=== PATIENT | male | born 1995 | race Two or more races ===

== ENCOUNTER 2021-05-19 11:58 | Emergency (ER) | payer OTHER, SELFPAY ==
--- NOTE | ~2021-05-19 | XR_ITS ---
EXAMINATION: XR CHEST CLINICAL INFORMATION: Pleuritic chest pain COMPARISON: None TECHNIQUE: Portable upright AP view of the chest was obtained. FINDINGS: The lungs are clear. There is no airspace consolidation, pleural reaction, pneumothorax, or effusion. The heart is normal in size. The hilar and mediastinal contours and bony structures are unremarkable. XR/XR chest 1V IMPRESSION: Unremarkable examination.
[2021-05-19 12:08] VITALS: BP 119/68; PULSE 68; RESP 16; TEMP 36.5; O2SAT 97; BMI 29.4
--- NOTE | 2021-05-19 14:08 | ED.BACK ---
HPI - Back Pain/Injury General Chief Complaint: Back Pain/Injury Stated Complaint: severe back pain Time Seen by Provider: 05/19/21 13:17 History of Present Illness HPI Narrative: patient complains of mid back pain worse with movement worse on the left side which started from a minor twisting injury, no fall, no radiation of pain no difficulty breathing no chest pain no numbness weakness or tingling no skin rash Related Data Previous Rx's Medication Instructions Recorded cyclobenzaprine 5 mg tablet 5 mg PO TID PRN #14 tab 05/19/21 ibuprofen 600 mg tablet 600 mg PO Q6H PRN #20 tab 05/19/21 oxycodone-acetaminophen 5 mg-325 1 tab PO Q6H PRN #14 tab 05/19/21 mg tablet (Percocet) Allergies Allergy/AdvReac Type Severity Reaction Status Date / Time loratadine [From CLARITIN] Allergy Intermediate RASH Verified 05/19/21 12:08 Review of Systems Review of Systems: Review of systems is positive for left-sided back pain Negatives are no fever no chills no dizziness no weakness no fainting no feeling faint no headache no neck pain no chest pain no shortness of breath no abdominal pain no nausea or vomiting no dysuria no incontinence no changes to bowel or bladder no skin rashes no muscle weakness or loss of sensation Physical exam General appearance no acute distress Head is normocephalic atraumatic Neck is supple Chest is clear to auscultation bilateral Abdomen is soft nontender The back had lower lumbar paraspinal soft tissue tenderness on the left side, the skin is normal no redness no warmth no wounds no rashes, pain is reproduced with movement, no focal bony tenderness and no CVA tenderness Extremities full range of motion x4 Neuro no gross motor or sensory deficits [facility] Past Medical History Medical History ADHD Asthma Social History Social History Advance Directives: No Advance Directives Information Provided: No Physical Exam Vital Signs: Vital Signs: Last Vital Signs Temp 97.7 F 05/19/21 12:08 Pulse 68 05/19/21 12:08 Resp 16 05/19/21 12:08 BP 119/68 05/19/21 12:08 Pulse Ox 97 05/19/21 12:08 Body Mass Index 29.4 Course Course Course Narrative: Well-appearing patient with musculoskeletal back pain is treated for symptomatic relief and discharged to follow-up as needed Discharge Plan Discharge Clinical Impression: Back strain Patient Disposition: Home, Self-Care Additional Instructions: pain is likely from muscle strain of the back and should resolve usually on its own in a reasonable amount of time If needed follow with primary doctor and they would send you for physical therapy and any further evaluation if needed Chiropractor and massage or often helpful Return any time if worse Prescriptions: New oxycodone-acetaminophen [Percocet] 5-325 mg tablet 1 tab PO Q6H PRN (Reason: pain) Qty: 14 RF: 0 cyclobenzaprine 5 mg tablet 5 mg PO TID PRN (Reason: muscle spasm) Qty: 14 RF: 0 ibuprofen 600 mg tablet 600 mg PO Q6H PRN (Reason: pain) Qty: 20 RF: 0 Interventions: ED Discharge Assessment Last Done: 05/19/21 14:18 Discharge Date/Time: 05/19/21 14:18
== END 2021-05-19 14:18 | disposition home or self-care (01) ==
PROVIDERS: Emergency Provider Emergency Medicine
DX: S39.012A Strain of muscle, fascia and tendon of lower back, initial encounter (principal); X50.1XXA Overexertion from prolonged static or awkward postures, initial encounter; Y93.9 Activity, unspecified; Y92.9 Unspecified place or not applicable; Y99.9 Unspecified external cause status
CPT/HCPCS: 71045; 99283

== ENCOUNTER 2023-02-11 17:58 | Emergency (ER) | payer OTHER, SELFPAY ==
--- NOTE | ~2023-02-11 | XR_ITS ---
EXAMINATION: XR cervical spine 3V CLINICAL INFORMATION: Pain COMPARISON: None TECHNIQUE: 4 views of the cervical spine were obtained. FINDINGS: The cervical spine is visualized to the level of C7-T1 on the lateral view. Vertebral body alignment is maintained. Vertebral body heights are maintained. Mild degenerative disc disease at C5-C6, manifested by loss of disc space height and degenerative endplate spurring.. Lateral masses of C1 are well aligned on C2. Visualized portion of the dens is intact. No prevertebral soft tissue swelling. XR/XR cervical spine 3V IMPRESSION: * Mild spondylosis of the cervical spine, as above detailed.
--- NOTE | ~2023-02-11 | XR_ITS ---
EXAMINATION: XR SHOULDER, RIGHT CLINICAL INFORMATION: Reason for Exam rt shoulder pain COMPARISON: None TECHNIQUE: Three views of the shoulder. FINDINGS: No acute fracture or dislocation. Joint spaces are maintained without significant degenerative change. Soft tissues are unremarkable. XR/XR shoulder RT min 2V IMPRESSION: * No acute osseous abnormality.
--- NOTE | ~2023-02-11 | XR_ITS ---
EXAMINATION: XR SHOULDER, LEFT CLINICAL INFORMATION: Reason for Exam lt shoulder pain COMPARISON: None TECHNIQUE: Three views of the shoulder. FINDINGS: No acute fracture or dislocation. Joint spaces are maintained without significant degenerative change. Tiny dense sclerotic lesion in the humeral head may reflect a small bone island. Soft tissues are unremarkable. XR/XR shoulder LT min 2V IMPRESSION: * No acute osseous abnormality. * Tiny dense sclerotic lesion in the humeral head may reflect a small bone island.
--- NOTE | ~2023-02-11 | XR_ITS ---
EXAMINATION: XR CHEST CLINICAL INFORMATION: Reason for Exam chest trauma COMPARISON: Chest radiograph 05/19/2021 TECHNIQUE: One view of the chest FINDINGS: Clear lungs. No pneumothorax or pleural effusion. Normal cardiomediastinal silhouette. No displaced rib fracture appreciated however radiographs have limited sensitivity and the ribs were incompletely imaged on this chest radiograph. XR/XR chest 1V IMPRESSION: * Clear lungs.
[2023-02-11 18:19] VITALS: BP 131/81; PULSE 74; RESP 18; TEMP 36.7; O2SAT 98; BMI 30.8
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
[2023-02-11] MEDS: Ibuprofen 400 MG TABLET PO (20:40)
== END 2023-02-11 20:55 | disposition home or self-care (01) ==
PROVIDERS: Emergency Provider Emergency Medicine Emergency Medical Services
DX: S13.4XXA Sprain of ligaments of cervical spine, initial encounter (principal); S46.911A Strain of unspecified muscle, fascia and tendon at shoulder and upper arm level, right arm, initial encounter; S46.912A Strain of unspecified muscle, fascia and tendon at shoulder and upper arm level, left arm, initial encounter; R51.9 Headache, unspecified; M54.2 Cervicalgia; R07.89 Other chest pain; V43.52XA Car driver injured in collision with other type car in traffic accident, initial encounter; Y93.9 Activity, unspecified; Y92.410 Unspecified street and highway as the place of occurrence of the external cause; Y99.9 Unspecified external cause status; Z79.899 Other long term (current) drug therapy
CPT/HCPCS: 71045; 72040; 73030; 99283

== ENCOUNTER 2023-06-10 12:17 | Emergency (ER) | payer OTHER, SELFPAY ==
[2023-06-10 12:24] VITALS: BP 114/71; PULSE 63; RESP 16; TEMP 36.1; O2SAT 96; BMI 31.4
--- NOTE | 2023-06-10 12:26 | ED.GENADULT ---
HPI - General Adult General Chief complaint: General Medical Stated complaint: Stitches bleeding surgery 3 days ago Time Seen by Provider: 06/10/23 13:34 Source: patient and family (patient's mother) Mode of arrival: ambulatory Limitations: no limitations History of Present Illness HPI narrative: Patient is a 27 year old assigned male at with a history of asthma and ADHD presenting to the emergency department today with post-operative bleeding. Patient states that on 06/07/2023 he had a hair transplant in [place]. Patient states that one of his sutured areas on the back of his head is bleeding. Patient states that he called the facility that did the procedure and they told him to apply direct pressure and not to worry about it. Patient denies any dizziness, lightheadedness, abdominal pain, nausea, vomiting, fever, chills, blurry vision, double vision, loss of vision, chest pain, difficulty breathing, shortness of breath, back pain, night sweats, pain with urination, increased urinary frequency, increased urinary urgency, blood in his urine or stool, syncope or a near syncopal episode, recent trauma or falls, bowel incontinence, bladder incontinence, bowel retention, bladder retention, or any other complaints at this time. Onset (ago): day(s) Location: head Radiation: non-radiation Severity: mild Severity scale (1-10): 3 Relieving factors: none Exacerbating factors: none Associated symptoms: denies other symptoms Treatments prior to arrival: none Related Data Previous Rx's Medication Instructions Recorded cyclobenzaprine 5 mg tablet 5 mg PO TID PRN muscle spasm #14 05/19/21 tabs ibuprofen 600 mg tablet 600 mg PO Q6H PRN pain #20 tabs 05/19/21 oxycodone-acetaminophen 5 mg-325 1 tab PO Q6H PRN pain #14 tabs 05/19/21 mg tablet (Percocet) ibuprofen 400 mg tablet 400 mg PO Q6H PRN pain #20 tabs 02/11/23 Allergies Allergy/AdvReac Type Severity Reaction Status Date / Time loratadine [From CLARITIN] Allergy Intermediate RASH Verified 06/10/23 12:27 Review of Systems Constitutional: Constitutional: Reports no additional constitutional complaints, Denies chills, Denies fever(s) and Denies night sweats Eyes: Eyes: Reports no additional eye complaints, Denies blurry vision, Denies change in vision, Denies diplopia, Denies eye discharge, Denies loss of vision and Denies eye pain ENT: Denies dizziness Comments: posterior scalp bleeding Cardiovascular: Cardiovascular: Reports no additional cardiovascular complaints, Denies chest pain, Denies lightheadedness, Denies Loss of Consciousness and Denies dyspnea Respiratory: Respiratory: Reports no additional respiratory complaints and Denies dyspnea Gastrointestinal: Gastrointestinal: Reports no additional gastrointestinal complaints, Denies abdominal pain, Denies melena, Denies hematochezia, Denies change in bowel habits and Denies change in stool character Genitourinary: Genitourinary: Reports no additional male genitourinary complaints, Denies hematuria, Denies oliguria, Denies difficulty urinating, Denies dysuria, Denies urinary frequency, Denies urinary hesitancy, Denies urinary incontinence and Denies urinary urgency Musculoskeletal: Musculoskeletal: Reports no additional musculoskeletal complaints, Denies numbness and Denies tingling Neurologic: Denies dizziness, Denies loss of vision, Denies numbness and Denies tingling Psychiatric: Psychiatric: Reports no additional psychiatric complaints Endocrine: Endocrine: Reports no additional endocrine complaints Hematologic/Lymphatic: Hematologic/Lymphatic: Reports no additional hematologic/lymphatic complaints Allergic/Immunologic: Allergic/Immunologic: Reports no additional allergic/immunologic complaints [facility] Past Medical History Attestation statement: The following information was validated with the patient. Source: old records reviewed and nursing notes reviewed Medical History ADHD Asthma Social History Social History Smoked in Last 30 Days: No Use of substances other than those prescribed or required for medical reasons: No Advance Directives: No Advance Directives Information Provided: Yes Physical Exam ED Vital Signs: Vital Signs - 24 hr 06/10/23 12:24 06/10/23 14:20 Temperature 97 F 98.4 F Pulse Rate 63 72 Respiratory Rate 16 16 Blood Pressure 114/71 128/65 Pulse Oximetry 96 97 Oxygen Delivery Method Room Air Room Air BMI result Body Mass Index 31.4 Const General: cooperative, no acute distress, alert and awake Nutritional Appearance: well nourished Orientation/consciousness: patient oriented x3 Limitations: no limitations [facility] Head images: 1. large area of hair with scabbing and blood clot Ears: hearing grossly normal bilaterally and external ears normal General nose exam: Normal external nose present, no nasal discharge noted and no epistaxis Face and sinus: Yes normal facial exam, No abrasion and No laceration Mouth: Normal oral and palatal mucosa present, no drooling and no muffled voice Eyes General: appearance normal, both eyes and all related structures Periorbital: periorbital findings normal Eyelids: Yes eyelids normal Conjunctivae: conjunctivae normal Pupils: Equal, round and reactive pupils present EOM: EOMs intact bilaterally Neck Neck: Yes normal visual inspection, Yes full ROM and Yes no lymphadenopathy Chest Chest palpation & inspection: normal inspection of the chest Resp Effort & Inspection: normal respiratory effort and able to speak in complete sentences GI Inspection: Yes normal to inspection Neuro General: patient oriented x3 and moves all extremities Cranial nerves: Yes Equal, round and reactive pupils present Cognition (Neuro): normal cognition Motor exam (neuro): 5/5 motor strength present throughout Sensory Exam: Normal double simultaneous stimulation for sensation Coordination: [id number] test normal Extrem General: Yes normal to inspection, Yes full ROM and Yes capillary refill normal Psych Appearance: grossly normal Mental Status: mental status grossly normal Affect: normal affect Attitude: cooperative Thought process: Normal thought process present Thought content: Normal thought content present Insight: Good insight present (Psych) Course Course Course Narrative: This is a rapid medical exam. deferred additional HPI, ROS, PE to primary provider. 27 yo male with history of asthma here with concern of bleeding from suture site. Had hair transplant procedure in [place], [place] on 06/07. Concerned because the suture sites are bleeding. Removed dressing in triage, large area of matted blood. Will need to be irrigated to determine area of bleeding. VSS. Medications Administered Discontinued Medications Generic Name Dose Route Start Last Admin Trade Name Freq PRN Reason Stop Dose Admin Tranexamic Acid 500 mg 06/10/23 14:06 06/10/23 14:33 Tranexamic Acid 1,000 Mg/10 Ml Vial INTRANASAL 06/10/23 14:07 500 mg ONCE ONE Administration Medical Decision Making Medical Decision Making MDM Narrative: Patient is a 27 year old assigned male at with a history of ADHD and asthma presenting to the emergency department today with post-operative bleeding. Patient's physical exam showed clumped hair with dried blood and clots present. Active bleeding wasn't visualized. I explained my physical exam findings to the patient and the patient's mother. I answered all questions asked by the patient and the patient's mother. Patient's area of concern was debrided of all blood clots and cleaned thoroughly. Patient's area of concerned was covered with TXA soaked gauze with a mild compression dressing made up of web roll type gauze. Patient's bleeding was well controlled. I stressed the importance of the patient taking his medication as prescribed. I stressed the importance of the patient following up with his primary care provider. I stressed the importance of the patient returning to the emergency department immediately if his symptoms were to worsen or if he were to develop any dizziness, shortness of breath, difficulty breathing, chest pain, blurry vision, loss of vision, nausea, vomiting, abdominal pain, fever, chills, back pain, or any other complaints. Patient and the patient's mother verbalized agreement and understanding with this treatment plan and discharge. Differential Diagnosis Differential Diagnoses: The differential diagnosis associated with the presentation includes Post-operative bleeding Discharge Plan Discharge Clinical Impression: Bleeding from wound Patient Disposition: Home, Self-Care Instructions: Postoperative Bleeding (ED) Additional Instructions: Do NOT change your dressing for 3 days. Follow up with your primary care provider. Return to the emergency department immediately if your symptoms worsen or if you develop any dizziness, shortness of breath, difficulty breathing, chest pain, blurry vision, loss of vision, nausea, vomiting, abdominal pain, fever, chills, back pain, or any other complaints. Prescriptions: No Action oxycodone-acetaminophen [Percocet] 5-325 mg tablet 1 tab PO Q6H PRN (Reason: pain) Qty: 14 0RF Rx Instructions: narcotic, no driving for 6 hours after taking this medication cyclobenzaprine 5 mg tablet 5 mg PO TID PRN (Reason: muscle spasm) Qty: 14 0RF Rx Instructions: this medication may cause drowsiness, no driving for 6 hours after taking ibuprofen 600 mg tablet 600 mg PO Q6H PRN (Reason: pain) Qty: 20 0RF ibuprofen 400 mg tablet 400 mg PO Q6H PRN (Reason: pain) Qty: 20 0RF Referrals: [facility] Family Medicine [Provider Group] (Call to establish and follow up with a primary care provider. If you already have a primary care provider, please follow up with them.) [facility] Primary CareLuis Eduardo [Provider Group] (Call to establish and follow up with a primary care provider. If you already have a primary care provider, please follow up with them.) [facility] Primary CareJessica [Provider Group] (Call to establish and follow up with a primary care provider. If you already have a primary care provider, please follow up with them.) Interventions: ED Discharge Assessment Last Done: 06/10/23 14:41 Discharge Date/Time: 06/10/23 14:41 Print Language: Yoruba
[2023-06-10 14:20] VITALS: BP 128/65; PULSE 72; RESP 16; TEMP 36.9; O2SAT 97
[2023-06-10] MEDS: Tranexamic Acid 1,000 MG/10 ML VIAL 500 MG INTRANASAL (14:33)
== END 2023-06-10 14:41 | disposition home or self-care (01) ==
PROVIDERS: Emergency Provider Student in an Organized Health Care Education/Training Program
DX: L76.22 Postprocedural hemorrhage of skin and subcutaneous tissue following other procedure (principal); Z79.899 Other long term (current) drug therapy
CPT/HCPCS: 99284

== ENCOUNTER 2023-06-28 19:18 | Emergency (ER) | payer OTHER, SELFPAY ==
[2023-06-28 19:55] VITALS: BP 127/65; PULSE 72; RESP 18; TEMP 36.3; O2SAT 97; BMI 33.2
--- NOTE | 2023-06-28 20:07 | ED.GENADULT ---
HPI - General Adult General Chief complaint: General Medical Stated complaint: suture removal Time Seen by Provider: 06/28/23 20:07 Source: patient, RN notes reviewed and old records reviewed Mode of arrival: ambulatory History of Present Illness HPI narrative: 28-year-old male with past medical history of ADHD, asthma, s/p hair transplant in [place] on the 06/07 presenting to ED for suture removal. States sutures were supposed to dissolve on their own however if they were dissolved was told he could get them removed after 18 days. Denies complaints at present including fever/chills, drainage from area. Onset (ago): week(s) Related Data Previous Rx's Medication Instructions Recorded cyclobenzaprine 5 mg tablet 5 mg PO TID PRN muscle spasm #14 05/19/21 tabs ibuprofen 600 mg tablet 600 mg PO Q6H PRN pain #20 tabs 05/19/21 oxycodone-acetaminophen 5 mg-325 1 tab PO Q6H PRN pain #14 tabs 05/19/21 mg tablet (Percocet) ibuprofen 400 mg tablet 400 mg PO Q6H PRN pain #20 tabs 02/11/23 Allergies Allergy/AdvReac Type Severity Reaction Status Date / Time loratadine [From CLARITIN] Allergy Intermediate RASH Verified 06/28/23 19:54 Review of Systems Review of Systems: Constitutional: No Fever, No Chills ENT/Mouth: No Ear Pain, No Nasal Congestion, No sore throat, No Rhinorrhea, No Swallowing Difficulty Cardiovascular: No Chest Pain, No SOB Respiratory: No Cough, No Sputum, No Wheezing Gastrointestinal: No Nausea, No Vomiting, No Abdominal pain Musculoskeletal: No joint pain, No Myalgias, No Joint Swelling Skin: +Skin Lesions, No rash Neuro: No Weakness, No Numbness, No Paresthesias Yes all other systems are reviewed and are negative Constitutional: Constitutional: Reports as per [facility] Past Medical History Attestation statement: The following information was validated with the patient. Source: old records reviewed Medical History ADHD Asthma Physical Exam ED Vital Signs: Vital Signs - 24 hr 06/28/23 19:55 Temperature 97.3 F Pulse Rate 72 Respiratory Rate 18 Blood Pressure 127/65 Pulse Oximetry 97 Oxygen Delivery Method Room Air BMI result Body Mass Index 33.2 Const General: cooperative, healthy appearing and no acute distress Orientation/consciousness: patient oriented x3 Limitations: no limitations HENMT Other: + large running suture intact to posterior scalp with appropriate wound healing, overlying crusting. No erythema. No fluctuance/induration or drainage. Head: Yes normal to inspection and Yes atraumatic Ears: hearing grossly normal bilaterally General nose exam: Normal external nose present Face and sinus: Yes normal facial exam Eyes General: appearance normal, both eyes and all related structures EOM: EOMs intact bilaterally Neck Neck: Yes normal visual inspection and Yes no meningeal signs Resp Effort & Inspection: normal respiratory effort and no respiratory distress Cardio Rate: regular rate Skin Rashes: no rashes Neuro General: patient oriented x3, tone normal and no meningeal signs Cranial nerves: Yes CN's II-XII intact bilaterally Gait exam (Neuro): Normal gait present Extrem General: Yes normal to inspection Procedures Procedure Narrative Procedure Narrative: Suture removal Posterior scalp 41cm suture removed No complications No active bleeding, discharge or pus drainage Medical Decision Making Medical Decision Making MDM Narrative: 28-year-old male with past medical history of ADHD, asthma, s/p hair transplant in [place] on the 06/07 presenting to ED for suture removal. On exam vital signs stable, NAD, nontoxic appearing, physical exam as above with intact running suture to posterior scalp with appropriate wound healing. No evidence of cellulitis, no abscess/drainage Running suture removed without complication. Results discussed with patient including worrisome signs and symptoms and strict return precautions, and when to return to the emergency department. They verbalized understanding and feel safe for discharge at this time. Differential Diagnosis Differential Diagnoses: The differential diagnosis associated with the presentation includes As above External Record Review External record reviewed: Inpatient record, Office record, Outpatient record, Prior outpatient labs, Prior outpatient radiology, Primary care record and Outside ED record Tests considered The following testing was considered but not selected: As above Discharge Plan Discharge Clinical Impression: Encounter for removal of sutures Patient Disposition: Home, Self-Care Instructions: Stitches Removal (ED) Additional Instructions: Keep dry and clean, do scrub, do not pick at scabs If area begins took infected, is red there is drainage or you fever return to the ED Prescriptions: No Action oxycodone-acetaminophen [Percocet] 5-325 mg tablet 1 tab PO Q6H PRN (Reason: pain) Qty: 14 0RF Rx Instructions: narcotic, no driving for 6 hours after taking this medication cyclobenzaprine 5 mg tablet 5 mg PO TID PRN (Reason: muscle spasm) Qty: 14 0RF Rx Instructions: this medication may cause drowsiness, no driving for 6 hours after taking ibuprofen 600 mg tablet 600 mg PO Q6H PRN (Reason: pain) Qty: 20 0RF ibuprofen 400 mg tablet 400 mg PO Q6H PRN (Reason: pain) Qty: 20 0RF Referrals: Physician,Unknown J [Primary Care Provider] -
== END 2023-06-28 20:16 | disposition home or self-care (01) ==
PROVIDERS: Emergency Provider Emergency Medicine
DX: Z48.02 Encounter for removal of sutures (principal)
CPT/HCPCS: 99282

== ENCOUNTER 2023-06-30 13:56 | Emergency (ER) | payer OTHER, SELFPAY ==
--- NOTE | 2023-06-30 14:00 | ED.GENADULT ---
HPI - General Adult General Chief complaint: Skin/Abscess/Foreign Body Stated complaint: wound check Time Seen by Provider: 06/30/23 14:04 Source: patient Mode of arrival: ambulatory Limitations: no limitations History of Present Illness HPI narrative: 28 yo male with history of ADHD, asthma, hair transplant in [place] on 06/07 here with concern for redness at the incision site and itching. Seen here 06/11 for bleeding from suture site, dressing was reinforced and sent home, returned 06/28 for suture removal. Has plans to follow-up with his PCP in August. No plans to return to [place] to be seen by the surgeon Related Data Previous Rx's Medication Instructions Recorded cyclobenzaprine 5 mg tablet 5 mg PO TID PRN muscle spasm #14 05/19/21 tabs ibuprofen 600 mg tablet 600 mg PO Q6H PRN pain #20 tabs 05/19/21 oxycodone-acetaminophen 5 mg-325 1 tab PO Q6H PRN pain #14 tabs 05/19/21 mg tablet (Percocet) ibuprofen 400 mg tablet 400 mg PO Q6H PRN pain #20 tabs 02/11/23 Allergies Allergy/AdvReac Type Severity Reaction Status Date / Time loratadine [From CLARITIN] Allergy Intermediate RASH Verified 06/28/23 19:54 Review of Systems Review of Systems: Yes all other systems are reviewed and are negative Constitutional: Constitutional: Reports no additional constitutional complaints, Denies body ache(s), Denies chills, Denies fever(s), Denies headache(s) and Denies weakness Eyes: Eyes: Reports no additional eye complaints and Denies change in vision ENT: Reports system reviewed and no additional complaints, except as documented, Denies dizziness, Denies headache(s), Denies nasal congestion, Denies nasal discharge and Denies neck pain Cardiovascular: Cardiovascular: Reports no additional cardiovascular complaints, Denies chest pain, Denies leg edema and Denies dyspnea Respiratory: Respiratory: Reports no additional respiratory complaints, Denies cough and Denies dyspnea Gastrointestinal: Gastrointestinal: Reports no additional gastrointestinal complaints, Denies abdominal pain, Denies diarrhea, Denies nausea and Denies vomiting Genitourinary: Genitourinary: Denies urinary incontinence Musculoskeletal: Musculoskeletal: Reports no additional musculoskeletal complaints, Denies back pain, Denies arthralgias, Denies joint swelling, Denies neck pain, Denies numbness and Denies tingling Integumentary/Breasts: Skin/Breast: Reports system reviewed and no additional complaints, except as docu, Reports erythema and Denies rash Neurologic: Reports system reviewed and no additional complaints, except as documented, Denies dizziness, Denies headache(s), Denies numbness, Denies tingling and Denies weakness [facility] Past Medical History Attestation statement: The following information was validated with the patient. Source: old records reviewed and nursing notes reviewed Medical History ADHD Asthma Social History Social History Advance Directives: No Advance Directives Information Provided: No Physical Exam ED Vital Signs: Vital Signs - 24 hr 06/30/23 14:01 Temperature 97.7 F Pulse Rate 66 Respiratory Rate 17 Blood Pressure 116/68 Pulse Oximetry 96 Oxygen Delivery Method Nasal Cannula BMI result Body Mass Index 31.5 Const General: cooperative, healthy appearing, comfortable and no acute distress Orientation/consciousness: patient oriented x3 Limitations: no limitations [facility] Head images: 1. +surgical incision site. There no surrounding erythema, swelling. There is some crusting over the surgical incision sites. The areas were compressed with no drainage noted. Ears: hearing grossly normal bilaterally Eyes General: appearance normal, both eyes and all related structures Neck Neck: Yes normal visual inspection Chest Chest palpation & inspection: normal inspection of the chest Resp Effort & Inspection: normal respiratory effort Neuro General: patient oriented x3 and moves all extremities Cognition (Neuro): normal cognition Gait exam (Neuro): Normal gait present Medical Decision Making Medical Decision Making MDM Narrative: 28 yo male here with concern of surgical incision site redness/itching. s/p hair transplant in [place] on 06/07 Seen here 06/11 for bleeding from suture site, dressing was reinforced and sent home, returned 06/28 for suture removal here with concern for redness. On exam the surgical incision site as some crusting but no erythema, swelling or drainage. Appears to be healing well. Explained to patient that itching is normal. Recommended f/u with PCP outpatient. Return for any changes Differential Diagnosis Differential Diagnoses: The differential diagnosis associated with the presentation includes surgical incision site infection Prescription Management I considered prescription management with: Antibiotic no signs of infection necessitating needing for antibiotics Discharge Plan Discharge Clinical Impression: Visit for wound check Patient Disposition: Home, Self-Care Instructions: Normal Exam (ED) Additional Instructions: The site does not look infected. Do not touch the incision sites. Continue with plans to follow-up with your PCP Prescriptions: No Action oxycodone-acetaminophen [Percocet] 5-325 mg tablet 1 tab PO Q6H PRN (Reason: pain) Qty: 14 0RF Rx Instructions: narcotic, no driving for 6 hours after taking this medication cyclobenzaprine 5 mg tablet 5 mg PO TID PRN (Reason: muscle spasm) Qty: 14 0RF Rx Instructions: this medication may cause drowsiness, no driving for 6 hours after taking ibuprofen 600 mg tablet 600 mg PO Q6H PRN (Reason: pain) Qty: 20 0RF ibuprofen 400 mg tablet 400 mg PO Q6H PRN (Reason: pain) Qty: 20 0RF Referrals: Physician,Unknown J [Primary Care Provider] - 2 weeks (Correction as scheduled in August )
[2023-06-30 14:01] VITALS: BP 116/68; PULSE 66; RESP 17; TEMP 36.5; O2SAT 96; BMI 31.5
== END 2023-06-30 14:19 | disposition home or self-care (01) ==
PROVIDERS: Emergency Provider Emergency Medicine
DX: Z48.00 Encounter for change or removal of nonsurgical wound dressing (principal)
CPT/HCPCS: 99282

== ENCOUNTER 2023-11-17 06:40 | Emergency (ER) | payer OTHER, SELFPAY ==
[2023-11-17 07:11] VITALS: BP 112/64; PULSE 70; RESP 18; TEMP 36.7; O2SAT 95; BMI 30.8
--- NOTE | 2023-11-17 07:33 | ED.EYEPROB ---
HPI - Eye Problem General Chief complaint: Eye Problems Stated complaint: l eye pain swelling Time Seen by Provider: 11/17/23 07:27 Source: patient and RN notes reviewed Mode of arrival: ambulatory Limitations: no limitations History of Present Illness HPI Narrative: this is a 28-year-old male, with a history of asthma, presenting to the emergency department with complaints of left lower eyelid swelling since yesterday. Patient states that he woke up yesterday morning and felt as though his lower eyelid was swollen, this improved throughout the day however when he woke up this morning it was even more swollen. He states slight itching and discomfort. He denies any recent trauma to his eye. He states occasionally he has some slight blurriness from his left eye which is intermittent. He denies any vision changes at this point. Denies any fevers, chills, eye pain, pain with eye movement. Denies history of similar symptoms in the past. No other complaints or concerns at this time. Onset (ago): day(s) Onset description: gradual Duration: constant and progressively worsening Location: left eye Eye Symptoms: pain, itching and blurry vision Place: home Mechanism: none If Pain, Quality: aching Associated symptoms: none Treatments Prior to Arrival: none Related Data Previous Rx's Medication Instructions Recorded cyclobenzaprine 5 mg tablet 5 mg PO TID PRN muscle spasm #14 05/19/21 tabs ibuprofen 600 mg tablet 600 mg PO Q6H PRN pain #20 tabs 05/19/21 oxycodone-acetaminophen 5 mg-325 1 tab PO Q6H PRN pain #14 tabs 05/19/21 mg tablet (Percocet) ibuprofen 400 mg tablet 400 mg PO Q6H PRN pain #20 tabs 02/11/23 erythromycin 5 mg/gram (0.5 %) eye 1 appl ophthalmic-Left BID 7 days 11/17/23 ointment #3.5 grams Allergies Allergy/AdvReac Type Severity Reaction Status Date / Time loratadine [From CLARITIN] Allergy Intermediate RASH Verified 11/17/23 07:11 Review of Systems Review of Systems: Yes all other systems are reviewed and are negative PMFSH Past Medical History Onset Date is defined in the Problem List Problems that require an onset date and time if occurred within 24 hrs of arrival to the ED Aortic Dissection and Rupture; Neurologic impairment; Cardiopulmonary Arrest; Endotracheal Intubation; Insertion or Replacement of Mechanical Circulatory Assist Device Medical History ADHD Asthma Social History Social History Advance Directives: No Advance Directives Information Provided: Yes Physical Exam Vital Signs: Vital Signs: Last Vital Signs Temp 98.1 F 11/17/23 07:11 Pulse 70 11/17/23 07:11 Resp 18 11/17/23 07:11 BP 112/64 11/17/23 07:11 Pulse Ox 95 11/17/23 07:11 O2 Del Method Room Air 11/17/23 07:11 BMI result Body Mass Index 30.8 Const: Other: General: Awake, alert, and oriented X3. No acute distress. HEENT: Left lower eyelid towards the medial canthus, there is edema and slight erythema noted, no crusting noted at the lid margins. Inversion of lower lid revealing no obvious stye. CVS: Normal heart rate and rhythm. Pulses normal. Respiratory: No respiratory distress Skin: Warm, dry, no rashes noted to exposed skin. Normal skin color. Normal skin turgor. Extremities: Normal to inspection Neuro: Oriented X 3. No motor deficit. No sensory deficit. Medical Decision Making Medical Decision Making MDM Narrative: this is a 28-year-old male presenting to the emergency department with complaints of left lower eyelid swelling since yesterday. Also endorsing some slight itching and pain. On arrival, vital signs within normal limits. Physical exam consistent with blepharitis. The differential diagnoses including conjunctivitis, periorbital cellulitis, iritis, hordeolum. patient has no pain with extraocular movements next for orbital cellulitis less likely. He has no vision changes, or any trauma to the eye. He is reporting no visual disturbances. Given physical examination finding, will treat with erythromycin ointment and warm compresses. visual acuity intact. Discussed return precautions with patient. He does not wear contact lenses. Patient stable for discharge Differential Diagnosis Differential Diagnoses: The differential diagnosis associated with the presentation includes see above Discharge Plan Discharge Clinical Impression: Blepharitis of left eyelid Qualifiers: Blepharitis type: unspecified type Eyelid: lower Qualified Code(s): H01.005 - Unspecified blepharitis left lower eyelid Patient Disposition: Home, Self-Care Instructions: Blepharitis (ED) Additional Instructions: You were seen in the emergency department due to left lower eyelid swelling. Your exam is consistent with a condition called blepharitis. This is inflammation of the eyelids which often can be a type of infection. I am treating you with topical antibiotic ointment. Please use as directed in finish the entire course even if you are feeling better. Please apply warm compresses to your left eye 5-6 times per day. You could not do this by applying a warm water to a washcloth in applying directly to your eye. This helps circulation to the area and express any infection from the skin. If any new or worsening symptoms occur including but not limited to fevers, worsening swelling, changes in vision, pain with eye movement, or vision changes, please return for re-evaluation. Prescriptions: New erythromycin 5 mg/gram (0.5 %) ointment 1 appl ophthalmic-Left BID 7 Days Qty: 3.5 0RF No Action oxycodone-acetaminophen [Percocet] 5-325 mg tablet 1 tab PO Q6H PRN (Reason: pain) Qty: 14 0RF Rx Instructions: narcotic, no driving for 6 hours after taking this medication cyclobenzaprine 5 mg tablet 5 mg PO TID PRN (Reason: muscle spasm) Qty: 14 0RF Rx Instructions: this medication may cause drowsiness, no driving for 6 hours after taking ibuprofen 600 mg tablet 600 mg PO Q6H PRN (Reason: pain) Qty: 20 0RF ibuprofen 400 mg tablet 400 mg PO Q6H PRN (Reason: pain) Qty: 20 0RF
== END 2023-11-17 08:12 | disposition home or self-care (01) ==
PROVIDERS: Emergency Provider Student in an Organized Health Care Education/Training Program
DX: H01.005 Unspecified blepharitis left lower eyelid (principal)
CPT/HCPCS: 99283